=== PATIENT | female | born 1945 | race Caucasian/White ===

== ENCOUNTER → 2016-10-14 | Outpatient (CLI) | payer MEDICARE ==
[~2016-10-14] MED LIST: ALBUTEROL0.63 MG/3 NEB; BREO ELLIPTA 11 EACH INH; CIPRO500 MG PO; ESCITALOPRAM OX20 MG PO; NEURONTIN 400400 MG PO; PROVENTIL HFA 61 INH INH; QUETIAPINE FUMA50 MG PO; SPIRIVA18 MCG INH; SYNTHROID175 MCG PO; XELJANZ5 MG PO; ZANAFLEX 4 MG TA4 MG PO; ZANTAC 150 MG150 MG PO
== END ==
LOC: RAD 16:54
DX: S20.211A Contusion of right front wall of thorax, initial encounter (principal); J44.9 Chronic obstructive pulmonary disease, unspecified; M85.80 Other specified disorders of bone density and structure, unspecified site; R91.8 Other nonspecific abnormal finding of lung field
CPT/HCPCS: 71020

== ENCOUNTER 2016-11-08 16:27 | Inpatient (IN) | payer MEDICARE ==
[~2016-11-08] VITALS: Ht 170.2 cm; Wt 56.5 kg
[2016-11-08 17:16] LABS: HEMOGLOBIN 12.5 gm/dl (12.3-15.3); RED BLOOD COUNT 3.81 M/UL (4.00-5.10)
[2016-11-08 17:26] LABS: BUN/CREATININE RATIO 7 (0-10)
[2016-11-09] MEDS ORDERED: ALBUTEROL0.63 MG/3 NEB (00:33)
[2016-11-09] MEDS ORDERED: BREO ELLIPTA 11 EACH INH (00:34)
[2016-11-09] MEDS ORDERED: PROVENTIL HFA 61 INH INH (00:34)
[2016-11-09] MEDS ORDERED: ESCITALOPRAM OX20 MG PO (00:35)
[2016-11-09] MEDS ORDERED: NEURONTIN 400400 MG PO (00:35)
[2016-11-09] MEDS ORDERED: QUETIAPINE FUMA50 MG PO (00:35)
[2016-11-09] MEDS ORDERED: ZANTAC 150 MG150 MG PO (00:36)
[2016-11-09] MEDS ORDERED: SPIRIVA18 MCG INH (00:36)
[2016-11-09] MEDS ORDERED: ZANAFLEX 4 MG TA4 MG PO (00:37)
[2016-11-09] MEDS ORDERED: XELJANZ5 MG PO (00:37)
[2016-11-09] MEDS ORDERED: SYNTHROID175 MCG PO (00:37)
[2016-11-10 05:27] LABS: BUN/CREATININE RATIO 13 (0-10)
[2016-11-12 07:00] LABS: RED BLOOD COUNT 2.98 M/UL (4.00-5.10); WHITE BLOOD COUNT 12.6 K/UL (4.5-11.0)
[2016-11-12 07:01] LABS: HEMOGLOBIN 9.6 gm/dl (12.3-15.3)
[2016-11-12 07:13] LABS: BUN/CREATININE RATIO 25 (0-10)
[2016-11-15 04:52] LABS: HEMOGLOBIN 10.4 gm/dl (12.3-15.3)
[2016-11-15 04:54] LABS: RED BLOOD COUNT 3.28 M/UL (4.00-5.10); WHITE BLOOD COUNT 18.3 K/UL (4.5-11.0)
[2016-11-15 05:54] LABS: BUN/CREATININE RATIO 36 (0-10)
[2016-11-16 04:28] LABS: HEMOGLOBIN 10.4 gm/dl (12.3-15.3); RED BLOOD COUNT 3.22 M/UL (4.00-5.10); WHITE BLOOD COUNT 14.3 K/UL (4.5-11.0)
[2016-11-16 04:46] LABS: BUN/CREATININE RATIO 43 (0-10)
[2016-11-17 05:56] LABS: RED BLOOD COUNT 3.72 M/UL (4.00-5.10); WHITE BLOOD COUNT 17.4 K/UL (4.5-11.0)
[2016-11-17 06:12] LABS: BUN/CREATININE RATIO 34 (0-10)
[2017-02-11] MEDS ORDERED: CIPRO500 MG PO (10:13)
== END 2016-11-17 11:12 | DRG 516 ==
LOC: ER1 16:27 → M/S 19:07 → ZEROF 19:07 → M/S 22:22
PROVIDERS: Emergency Medicine; Family Medicine; Orthopaedic Surgery; ADMIT Emergency Medicine
PROC: 0QS03ZZ Reposition Lumbar Vertebra, Percutaneous Approach (ICD-10-PCS; principal; 2016-11-11 18:45)
PROC: 0QU03JZ Supplement Lumbar Vertebra with Synthetic Substitute, Percutaneous Approach (ICD-10-PCS; principal; 2016-11-11 18:45)
DX: M48.56XA Collapsed vertebra, not elsewhere classified, lumbar region, initial encounter for fracture (principal); J96.10 Chronic respiratory failure, unspecified whether with hypoxia or hypercapnia; J44.1 Chronic obstructive pulmonary disease with (acute) exacerbation; M06.9 Rheumatoid arthritis, unspecified; F41.9 Anxiety disorder, unspecified; F32.9 Major depressive disorder, single episode, unspecified; W10.8XXA Fall (on) (from) other stairs and steps, initial encounter; M81.0 Age-related osteoporosis without current pathological fracture; S73.101A Unspecified sprain of right hip, initial encounter; S32.591A Other specified fracture of right pubis, initial encounter for closed fracture; E55.9 Vitamin D deficiency, unspecified; M89.8X6 Other specified disorders of bone, lower leg; E89.0 Postprocedural hypothyroidism; Y83.8 Other surgical procedures as the cause of abnormal reaction of the patient, or of later complication, without mention of misadventure at the time of the procedure; D50.9 Iron deficiency anemia, unspecified; D72.829 Elevated white blood cell count, unspecified; T38.0X5A Adverse effect of glucocorticoids and synthetic analogues, initial encounter; Z88.5 Allergy status to narcotic agent; Z79.82 Long term (current) use of aspirin; Z79.899 Other long term (current) drug therapy; Z87.891 Personal history of nicotine dependence; Z90.81 Acquired absence of spleen
CPT/HCPCS: 36415; 70450; 71250; 72125; 72131; 73502; 73522; 73700; 77075; 78306; 80048; 80053; 81001; 82550; 82553; 82607; 82746; 83615; 83690; 83874; 83883; 83921; 83970; 84484; 85025; 85027; 85045; 85610; 85730; 86334; 87086; 93005; 94640; 94664; 96361; 96372; 96374; 96375; 97110; 97116; 97530; 99285; A9503; G0378; J1100; J1630; J1885; J2270; J2405; J2710; J2930; J7030; J7120; Q9962

== ENCOUNTER → 2016-12-08 | Outpatient (CLI) | payer MEDICARE | LOC: KOH-I 12:00 | DX: M54.16 Radiculopathy, lumbar region (principal); M48.56XA Collapsed vertebra, not elsewhere classified, lumbar region, initial encounter for fracture; M99.73 Connective tissue and disc stenosis of intervertebral foramina of lumbar region; R60.0 Localized edema | CPT/HCPCS: 72148 ==